=== PATIENT | male | born 1970 | race American Indian/Alaskan Native ===

== ENCOUNTER 2020-10-13 13:23 | Outpatient (CLI) | payer OTHER | END 2020-10-13 23:59 | disposition short-term general hospital (02) | LOC: EMS 13:23 | DX: R51.9 Headache, unspecified (principal); R11.2 Nausea with vomiting, unspecified; R41.0 Disorientation, unspecified; R20.0 Anesthesia of skin | CPT/HCPCS: A0425; A0429 ==

== ENCOUNTER 2021-04-20 05:57 | Outpatient (CLI) | payer OTHER | END 2021-04-20 05:58 | disposition short-term general hospital (02) | LOC: EMS 05:57 | DX: M54.50 Low back pain, unspecified (principal); M79.605 Pain in left leg | CPT/HCPCS: A0425; A0429 ==

== ENCOUNTER 2021-07-27 03:17 | Outpatient (CLI) | payer OTHER | END 2021-07-27 03:18 | disposition critical access hospital (66) | LOC: EMS 03:17 | DX: R56.9 Unspecified convulsions (principal) | CPT/HCPCS: A0425; A0429 ==

== ENCOUNTER 2021-07-27 03:45 | Emergency (ER) | payer OTHER ==
[2021-07-27] MEDS ORDERED: SODIUM CHLORIDE 0.9% 1,000 ML IV STA (04:01)
--- NOTE | 2021-07-27 04:15 | ED Physician Documentation ---
PD HPI SEIZURE - Stated complaint Stated Complaint: SEIZURE/CPR - Chief complaint Chief Complaint: Neuro - History obtained from History obtained from: Patient, EMS - History of Present Illness Timing - onset: Enter time (299), Today Witnessed: Witnessed Number of seizures: Single, Lasted minutes Description of seizure activity: Generalized, Tonic clonic, Postictal Injury during seizure: Bit tongue Associated symptoms: Headache History of seizures: First seizure Contributing factors: Other (headache for the past week). No: Head injury, Substance abuse, EtOH withdrawal, Overdose Similar symptoms before: Has not had sx before Recently seen: Not recently seen - Additional information Additional information: 51-year-old male with a prior history of a CVA and elevated intracranial pressure was in bed with his this evening when he had a tonic-clonic seizure. It lasted maybe 3 minutes. He bit his tongue. He had a long postictal period. He has not had seizure previously but he has been told that he could have seizure from this disorder. He is also been told that the fix for this is a shunt. He has a neurologist at [place] in [place]. At the [facility]. Review of Systems Constitutional: denies: Fever Eyes: denies: Decreased vision Ears: denies: Ear pain Nose: denies: Congestion Throat: denies: Sore throat Cardiac: denies: Chest pain / pressure, Palpitations Respiratory: denies: Dyspnea, Cough GI: denies: Abdominal Pain, Nausea, Vomiting, Constipation, Diarrhea : denies: Dysuria, Frequency Skin: denies: Rash Musculoskeletal: denies: Neck pain, Back pain, Extremity pain Neurologic: reports: Seizure, Headache. denies: Generalized weakness, Focal weakness, Numbness, Head injury, LOC PD PAST MEDICAL HISTORY - Past Medical History Past Medical History: Yes Neuro: CVA, Other Musculoskeletal: Chronic back pain Other Past Medical History: ICP - Present Medications Home Medications: Ambulatory Orders Medication Instructions Recorded Confirmed Gabapentin [Neurontin] 400 mg PO TID 07/27/21 07/27/21 Levetiracetam [Keppra] 500 mg PO BID #40 tablet 07/27/21 Topiramate 50 mg PO BID 07/27/21 acetaZOLAMIDE [Diamox] 500 mg PO BID 07/27/21 07/27/21 tiZANidine [Zanaflex] 4 mg PO TID 07/27/21 07/27/21 - Allergies Allergies/Adverse Reactions: Allergies Allergy/AdvReac Type Severity Reaction Status Date / Time No Known Drug Allergies Allergy Verified 07/27/21 03:55 - Social History Does the pt smoke?: No Smoking Status: Never smoker Does the pt drink ETOH?: Yes Does the pt have substance abuse?: No - Immunizations Immunizations are current?: Yes PD ED PE NORMAL - Vitals Vital signs reviewed: Yes (Tachypneic and hypertensive) - General General: No acute distress, Well developed/nourished, Other (On initial evaluation the patient is post ictal and has some speech latency and delay in execution of motor commands.) - HEENT HEENT: Atraumatic, PERRL, EOMI, Ears normal, Moist mucous membranes, Pharynx benign - Neck Neck: Supple, no meningeal sign, No bony TTP - Cardiac Cardiac: RRR, No murmur - Respiratory Respiratory: No respiratory distress, Clear bilaterally - Abdomen Abdomen: Normal bowel sounds, Soft, Non tender, Non distended, No organomegaly - Back Back: No CVA TTP, No spinal TTP - Derm Derm: Normal color, Warm and dry, No rash - Extremities Extremities: No deformity, No edema - Neuro Neuro: Alert and oriented X 3, learning disabilities specialist 2-12 intact, No motor deficit, No sensory deficit, Normal speech Eye Opening: Spontaneous Motor: Obeys Commands Verbal: Oriented GCS Score: 15 - Psych Psych: Normal mood, Normal affect Results - Vitals Vitals: Vital Signs - 24 hr 07/27/21 07/27/21 07/27/21 03:55 04:30 04:39 Temperature 36.8 C Heart Rate 87 77 Respiratory 25 H 20 Rate Blood Pressure 141/80 H 128/91 H O2 Saturation 98 88 L 99 07/27/21 07/27/21 07/27/21 05:00 05:30 06:00 Temperature Heart Rate 74 77 83 Respiratory 17 22 24 Rate Blood Pressure 130/85 H 134/86 H 144/84 H O2 Saturation 99 99 98 07/27/21 07/27/21 07/27/21 06:30 07:00 07:30 Temperature Heart Rate 88 81 78 Respiratory 17 24 20 Rate Blood Pressure 143/86 H 124/77 128/74 O2 Saturation 98 98 99 Oxygen O2 Source Nasal cannula - EKG (time done) 0400 Rate: Rate (enter#) (86) Rhythm: NSR Ischemia: Normal ST segments Compare to prior EKG: Old EKG unavailable Computer interpretation: Agree with computer - Labs Labs: Laboratory Tests 07/27/21 07/27/21 07/27/21 04:33 04:33 04:39 WBC 9.3 RBC 5.37 Hgb 16.0 Hct 47.3 MCV 88.1 MCH 29.8 MCHC 33.8 RDW 12.8 Plt Count 237 MPV 9.6 Neut # (Auto) 8.0 H Lymph # (Auto) 0.6 L Armstrong # (Auto) 0.3 Eos # (Auto) 0.1 Baso # (Auto) 0.1 Absolute Nucleated RBC 0.00 Nucleated RBC % 0.0 Sodium 139 Potassium 4.3 Chloride 101 Carbon Dioxide 26 Anion Gap 12.0 BUN 20 Creatinine 1.2 Estimated GFR (MDRD) 64 L Glucose 109 H Calcium 9.3 Total Bilirubin 0.9 AST 38 ALT 38 Alkaline Phosphatase 61 Total Protein 8.1 Albumin 4.9 Globulin 3.2 Albumin/Globulin Ratio 1.5 Lipase 42 Urine Color Urine Clarity Urine pH Ur Specific [place] Urine Protein Urine Glucose (UA) Urine Ketones Urine Occult Blood Urine Nitrite Urine Bilirubin Urine Urobilinogen Ur Leukocyte Esterase Urine RBC Urine WBC Ur Squamous Epith Cells Urine Bacteria Urine Casts Ur Microscopic Review Urine Culture Comments Nasal Adenovirus (PCR) NOT DETECTED Nasal B. parapertussis DNA (PCR) NOT DETECTED Nasal Coronavir 229E PCR NOT DETECTED Nasal Coronavir HKU1 PCR NOT DETECTED Nasal Coronavir NL63 PCR NOT DETECTED Nasal Coronavir OC43 PCR NOT DETECTED Nasal Enterovir/Rhinovir PCR NOT DETECTED Nasal Influenza B PCR NOT DETECTED Nasal Influenza A PCR NOT DETECTED Nasal Parainfluen 1 PCR NOT DETECTED Nasal Parainfluen 2 PCR NOT DETECTED Nasal Parainfluen 3 PCR NOT DETECTED Nasal Parainfluen 4 PCR NOT DETECTED Nasal RSV (PCR) NOT DETECTED Nasal B.pertussis DNA PCR NOT DETECTED Nasal C.pneumoniae (PCR) NOT DETECTED Masood Human Metapneumo PCR NOT DETECTED Nasal M.pneumoniae (PCR) NOT DETECTED Nasal SARS-CoV-2 (PCR) NOT DETECTED Urine Opiates Screen Ur Oxycodone Screen Urine Methadone Screen Ur Propoxyphene Screen Ur Barbiturates Screen Ur Tricyclics Screen Ur Phencyclidine Scrn Ur Amphetamine Screen U Methamphetamines Scrn U Benzodiazepines Scrn Urine Cocaine Screen U Cannabinoids Screen Ethyl Alcohol < 5.0 07/27/21 05:36 WBC RBC Hgb Hct MCV MCH MCHC RDW Plt Count MPV Neut # (Auto) Lymph # (Auto) Armstrong # (Auto) Eos # (Auto) Baso # (Auto) Absolute Nucleated RBC Nucleated RBC % Sodium Potassium Chloride Carbon Dioxide Anion Gap BUN Creatinine Estimated GFR (MDRD) Glucose Calcium Total Bilirubin AST ALT Alkaline Phosphatase Total Protein Albumin Globulin Albumin/Globulin Ratio Lipase Urine Color YELLOW Urine Clarity CLEAR Urine pH 5.5 Ur Specific [place] >=1.030 H Urine Protein TRACE Urine Glucose (UA) NEGATIVE Urine Ketones NEGATIVE Urine Occult Blood MODERATE H Urine Nitrite NEGATIVE Urine Bilirubin NEGATIVE Urine Urobilinogen 0.2 (NORMAL) Ur Leukocyte Esterase NEGATIVE Urine RBC 0-5 Urine WBC 0-3 Ur Squamous Epith Cells NONE SEEN Urine Bacteria None Seen Urine Casts 6-10 Hyaline Casts Ur Microscopic Review INDICATED Urine Culture Comments NOT INDICATED Nasal Adenovirus (PCR) Nasal B. parapertussis DNA (PCR) Nasal Coronavir 229E PCR Nasal Coronavir HKU1 PCR Nasal Coronavir NL63 PCR Nasal Coronavir OC43 PCR Nasal Enterovir/Rhinovir PCR Nasal Influenza B PCR Nasal Influenza A PCR Nasal Parainfluen 1 PCR Nasal Parainfluen 2 PCR Nasal Parainfluen 3 PCR Nasal Parainfluen 4 PCR Nasal RSV (PCR) Nasal B.pertussis DNA PCR Nasal C.pneumoniae (PCR) Masood Human Metapneumo PCR Nasal M.pneumoniae (PCR) Nasal SARS-CoV-2 (PCR) Urine Opiates Screen NEGATIVE Ur Oxycodone Screen NEGATIVE Urine Methadone Screen NEGATIVE Ur Propoxyphene Screen NEGATIVE Ur Barbiturates Screen NEGATIVE Ur Tricyclics Screen NEGATIVE Ur Phencyclidine Scrn NEGATIVE Ur Amphetamine Screen NEGATIVE U Methamphetamines Scrn NEGATIVE U Benzodiazepines Scrn NEGATIVE Urine Cocaine Screen NEGATIVE U Cannabinoids Screen NEGATIVE Ethyl Alcohol - Rads (name of study) CT head Radiology: Prelim report reviewed (Impression: 1. No CT evidence of acute intracranial pathology.), EMP read indepedently, See rad report PD MEDICAL DECISION MAKING - ED course Complexity details: reviewed results, re-evaluated patient, considered differential, d/w patient ED course: 51-year-old male with a prior history of elevated intracranial pressure and a CVA previously has seizure today. There are no specific findings on physical exam to indicate a seizure trigger. We were unable to get a hold of the patient's neurologist this morning and have administered Keppra 500 mg intravenously. We will continue to attempt to contact his neurologist this morning. At shift change care is turned over to Dr. Young anticipating further direction from the neurologist. Departure - Departure Clinical Impression: Seizure Condition: Stable Instructions: ED Seizure New Onset Unk Cause Follow-Up: [facility] [Provider Group] Prescriptions: Levetiracetam [Keppra] 500 mg PO BID #40 tablet
[2021-07-27 04:38] LABS: BASOPHILS # (AUTO) 0.1 10^3/uL (0.0-0.1); BASOPHILS % (AUTO) 0.5 %; EOSINOPHILS # (AUTO) 0.1 10^3/uL (0.0-0.7); EOSINOPHILS % (AUTO) 1.3 %; HCT - HEMATOCRIT 47.3 % (42.0-52.0); LYMPHOCYTES # (AUTO) 0.6 10^3/uL (1.5-3.5); LYMPHOCYTES % (AUTO) 6.6 %; MEAN CORPUSCULAR HEMOGLOBIN 29.8 pg (27.0-31.0); MEAN CORPUSCULAR HGB CONC 33.8 g/dL (32.0-36.0); MEAN CORPUSCULAR VOLUME 88.1 fL (80.0-94.0); MEAN PLATELET VOLUME 9.6 fL (7.4-11.4); MONOCYTES # (AUTO) 0.3 10^3/uL (0.0-1.0); NEUTROPHILS % (AUTO) 86.1 %; PLT - PLATELET COUNT 237 10^3/uL (130-450); RED BLOOD COUNT 5.37 10^6/uL (4.70-6.10); RED CELL DISTRIBUTION WIDTH 12.8 % (12.0-15.0); WHITE BLOOD COUNT 9.3 x10^3/uL (4.8-10.8)
[2021-07-27 04:49] LABS: ALBUMIN 4.9 g/dL (3.2-5.5); ALBUMIN/GLOBULIN RATIO 1.5 (1.0-2.2); ALKALINE PHOSPHATASE 61 IU/L (42-121); ALT ALANINE AMINOTRANSFERASE 38 IU/L (10-60); AST ASPARTATE AMINOTRANSFERASE 38 IU/L (10-42); BILIRUBIN,TOTAL 0.9 mg/dL (0.2-1.0); BUN - BLOOD UREA NITROGEN 20 mg/dL (6-20); CALCIUM 9.3 mg/dL (8.5-10.3); CARBON DIOXIDE - CO2 26 mmol/L (21-32); CHLORIDE 101 mmol/L (101-111); CREATININE 1.2 mg/dL (0.6-1.2); ETOH - ETHANOL < 5.0 mg/dL; GFR - MDRD 64 (>89); GLUCOSE 109 mg/dL (70-100); LIPASE 42 U/L (22-51); POTASSIUM 4.3 mmol/L (3.5-5.0); SODIUM 139 mmol/L (135-145); TOTAL PROTEIN 8.1 g/dL (6.7-8.2)
[2021-07-27 05:37] LABS: B. PARAPERTUSSIS- RESP PCR PAN NOT DETECTED; B. PERTUSSIS- RESP PCR PANEL NOT DETECTED; C. PNEUMONIAE- RESP PCR PANEL NOT DETECTED; CORONAVIRUS 229E-RESP PCR NOT DETECTED; CORONAVIRUS HKU1-RESP PCR NOT DETECTED; CORONAVIRUS NL63-RESP PCR NOT DETECTED; CORONAVIRUS OC43-RESP PCR NOT DETECTED; HUMAN METAPNEUMOVIRUS NOT DETECTED; INFLUENZA A- RESP PCR PANEL NOT DETECTED; INFLUENZA B - RESP PCR PANEL NOT DETECTED; M. PNEUMONIAE- RESP PCR PANEL NOT DETECTED; PARAINFLUENZA VIRUS 1 NOT DETECTED; PARAINFLUENZA VIRUS 2 NOT DETECTED; PARAINFLUENZA VIRUS 3 NOT DETECTED; PARAINFLUENZA VIRUS 4 NOT DETECTED; RHINOVIRUS/ENTEROVIRUS NOT DETECTED; RSV- RESP PCR PANEL NOT DETECTED; SARS-CoV-2 -RESP PCR PANEL NOT DETECTED
[2021-07-27 05:38] LABS: MUDS CUTOFF CONCENTRATIONS CUTOFF CONC BELOW:
[2021-07-27 05:40] LABS: BILIRUBIN,URINE NEGATIVE (NEGATIVE); GLUCOSE, URINE (UA) NEGATIVE (NEGATIVE); KETONES,URINE (UA) NEGATIVE (NEGATIVE); LEUKOCYTE ESTERASE, URINE NEGATIVE (NEGATIVE); NITRITE,URINE NEGATIVE (NEGATIVE); OCCULT BLOOD,URINE MODERATE (NEGATIVE); PH,URINE 5.5 PH (5.0-7.5); PROTEIN,URINE TRACE mg/dL (NEGATIVE); UROBILINOGEN,URINE 0.2 (NORMAL) E.U./dL (NORMAL)
[2021-07-27] MEDS ORDERED: levETIRAcetam INJ 500 MG in SODIUM CHLORIDE 0.9% 100ML 100 ML IV STA (05:49)
[2021-07-27 05:50] LABS: CLARITY,URINE CLEAR (CLEAR); RBC,URINE 0-5 /HPF (0-5); WBC,URINE 0-3 /HPF (0-3)
[2021-07-27 05:51] LABS: AMPHETAMINE SCREEN,URINE NEGATIVE (NEGATIVE); BACTERIA,URINE None Seen /HPF (None Seen); BARBITURATE SCREEN,UR NEGATIVE (NEGATIVE); BENZODIAZEPINES SCREEN, URINE NEGATIVE (NEGATIVE); CASTS, URINE 6-10 Hyaline Casts /LPF; COCAINE SCREEN URINE NEGATIVE (NEGATIVE); METHADONE SCREEN, URINE NEGATIVE (NEGATIVE); METHAMPHETAMINES SCREEN, URINE NEGATIVE (NEGATIVE); OPIATE SCREEN, URINE NEGATIVE (NEGATIVE); OXYCODONE SCREEN, URINE NEGATIVE (NEGATIVE); PROPOXYPHENE SCREEN, URINE NEGATIVE (NEGATIVE); SQUAMOUS EPITHELIAL CELL,UR NONE SEEN (<= Few); THC CANNABINOID SCREEN, URINE NEGATIVE (NEGATIVE); TRICYCLIC ANTIDEPRESSANT,URINE NEGATIVE (NEGATIVE)
--- NOTE | 2021-07-27 08:30 | CT Report ---
PROCEDURE: HEAD WO INDICATIONS: new onset seizure TECHNIQUE: Noncontrast 4.5 mm thick angled axial sections acquired from the foramen magnum to the vertex. For r adiation dose reduction, the following was used: automated exposure control, adjustment of mA and/or kV according to patient size. COMPARISON: None. FINDINGS: Image quality: Excellent. CSF spaces: Basal cisterns are patent. No extra-axial fluid collections. Ventricles are normal in size and shape. Brain: No midline shift. No intracranial masses or hemorrhage. Saenz-white matter interface is norm al. Skull and face: Calvarium and visualized facial bones are intact, without suspicious lesions. Sinuses: Visualized sinuses and mastoids are clear. IMPRESSION: 1. No acute intracranial process. 2. Concordant with preliminary report. Reviewed by: Apoorva Kang MD on 07/27/2021 8:29 AM PST Approved by: Apoorva Kang MD on 07/27/2021 8:29 AM PST Station ID: [id number]
[2021-07-27] MEDS ORDERED: HYDROmorphone 0.5 MG/0.5 ML SYRINGE IVP STA (08:45)
[2021-07-27 09:36] VITALS: BP 136/80
[2021-07-27] MEDS ORDERED: KETOROLAC 60 MG/2 ML VIAL IM STA (09:58)
== END 2021-07-27 10:24 | disposition home or self-care (01) ==
LOC: EDUNIT# → EDBD → ED 03:45
DX: R56.9 Unspecified convulsions (principal); R51.9 Headache, unspecified; Z86.73 Personal history of transient ischemic attack (TIA), and cerebral infarction without residual deficits; Z20.822 Contact with and (suspected) exposure to COVID-19
CPT/HCPCS: 0202U; 36415; 70450; 80053; 80306; 80320; 81001; 83690; 85025; 93005; 96365; 96372; 96375; 99284; J1170; 81003; 87086

== ENCOUNTER 2021-07-28 10:17 | Outpatient (CLI) | payer OTHER ==
--- NOTE | 2021-07-28 14:29 | XRAY Report ---
PROCEDURE: Lumbar Spine 2 View INDICATIONS: LUMBAR BACK PAIN TECHNIQUE: 3 views of the lumbar spine were acquired. COMPARISON: None. FINDINGS: Bones: 5 [id number] vertebrae are present. There is normal bony alignment. Loss of height note d in T12 and L1-2 bodies compatible with compression fractures of indeterminate age. T12 compression fracture results in approximately 25% loss of normal vertebral body height. The L1 compression fractu re results in approximately 40% loss of normal vertebral body height. No kyphosis or significant retr opulsed bone fragments associated with either the T12 or L1 compression fractures. Probable chronic L 3 and L4 compression deformities noted. No suspicious bony lesions. Postprocedural changes compatible with L3 and L4 percutaneous vertebral plasties. Postsurgical changes compatible with L3-L5 PSIF. Ort hopedic hardware is in expected position. Orthopedic hardware is intact. Moderate L5-S1 degenerative disc changes. Soft tissues: Overlying bowel gas pattern is normal. No suspicious soft tissue calcifications. IMPRESSION: 1. T12 and L1 compression fractures of indeterminate age. 2. Probable chronic L3 and L4 compression fractures. 3. Postsurgical changes. Reviewed by: Susan Vinson MD, PhD on 07/28/2021 2:28 PM PST Approved by: Susan Vinson MD, PhD on 07/28/2021 2:28 PM PST Station ID: [id number]
== END 2021-07-28 23:59 | disposition home or self-care (01) ==
LOC: DI.S 10:17
PROVIDERS: ATTEND Physician Assistant
DX: M54.50 Low back pain, unspecified (principal); S32.019A Unspecified fracture of first lumbar vertebra, initial encounter for closed fracture; S22.089A Unspecified fracture of T11-T12 vertebra, initial encounter for closed fracture; Z98.1 Arthrodesis status; M51.37 Other intervertebral disc degeneration, lumbosacral region

== ENCOUNTER 2021-09-22 14:55 | Outpatient (CLI) | payer OTHER ==
--- NOTE | 2021-09-22 17:01 | XRAY Report ---
PROCEDURE: Lumbar Spine 2 View INDICATIONS: COMPRESSION FX TECHNIQUE: 3 views of the lumbar spine were acquired. COMPARISON: 3 views of the lumbar spine dated 07/28/2021. FINDINGS: Bones: 5 [id number] vertebrae are present. Postoperative changes redemonstrated within the lumb ar spine. No interval change when compared with the study dated 07/28/2021. Stable compression deformi ties at T12 and L1. No new suspicious bony lesions. Soft tissues: Overlying bowel gas pattern is normal. No suspicious soft tissue calcifications. IMPRESSION: Stable postoperative changes and compression deformities when compared with the study fr om 07/28/2021. Reviewed by: Yaneli Apple MD on 09/22/2021 4:59 PM PDT Approved by: Yaneli Apple MD on 09/22/2021 4:59 PM PDT Station ID: [id number]
== END 2021-09-22 14:56 | disposition home or self-care (01) ==
LOC: DI.S 14:55
PROVIDERS: ATTEND Neurological Surgery
DX: S22.080A Wedge compression fracture of T11-T12 vertebra, initial encounter for closed fracture (principal)

== ENCOUNTER 2021-10-13 18:11 | Outpatient (CLI) | payer OTHER ==
[2021-10-13 20:06] LABS: BASOPHILS % (AUTO) 0.7 %; EOSINOPHILS # (AUTO) 0.2 10^3/uL (0.0-0.7); EOSINOPHILS % (AUTO) 3.5 %; HCT - HEMATOCRIT 44.9 % (42.0-52.0); HGB - HEMOGLOBIN 15.1 g/dL (14.0-18.0); MEAN CORPUSCULAR HGB CONC 33.6 g/dL (32.0-36.0); MEAN CORPUSCULAR VOLUME 89.1 fL (80.0-94.0); MEAN PLATELET VOLUME 10.2 fL (7.4-11.4); MONOCYTES # (AUTO) 0.4 10^3/uL (0.0-1.0); MONOCYTES % (AUTO) 7.1 %; NEUTROPHILS # (AUTO) 3.1 10^3/uL (1.5-6.6); NEUTROPHILS % (AUTO) 54.5 %; PLT - PLATELET COUNT 226 10^3/uL (130-450); RED BLOOD COUNT 5.04 10^6/uL (4.70-6.10); RED CELL DISTRIBUTION WIDTH 12.9 % (12.0-15.0); WHITE BLOOD COUNT 5.7 x10^3/uL (4.8-10.8)
[2021-10-13 20:18] LABS: ALBUMIN 4.6 g/dL (3.2-5.5); ALBUMIN/GLOBULIN RATIO 1.5 (1.0-2.2); BILIRUBIN,TOTAL 0.7 mg/dL (0.2-1.0); CALCIUM 9.3 mg/dL (8.5-10.3); CREATININE 1.2 mg/dL (0.6-1.2); POTASSIUM 3.8 mmol/L (3.5-5.0); TOTAL PROTEIN 7.6 g/dL (6.7-8.2)
== END 2021-10-13 18:12 | disposition home or self-care (01) ==
LOC: LAB.S 18:11
PROVIDERS: ATTEND Physician Assistant
DX: Z51.81 Encounter for therapeutic drug level monitoring (principal); R04.0 Epistaxis
CPT/HCPCS: 36415; 80053; 85025

== ENCOUNTER 2021-12-01 08:08 | Outpatient (CLI) | payer OTHER ==
--- NOTE | 2021-12-01 12:13 | XRAY Report ---
PROCEDURE: Lumbar Spine w/Flex/Ext INDICATIONS: COMPRESSION FRACTURE TECHNIQUE: AP & Lateral views of the lumbar spine were acquired, followed by flexion & extension austin ding views of the lumbar spine. COMPARISON: X-ray lumbar spine, 09/22/2021 and 07/28/2021. FINDINGS: Bones: 5 [id number] vertebrae are present. There is grade 1 retrolisthesis of L3 on L4 and L4 on L5. There are postsurgical changes with posterior fusion at L3-L5. Vertebroplasty at L3 and L4 wi th mild compression deformitie of the superior endplate of L3 and L4. There is also mild compression fracture of T12 and L1, unchanged. No acute vertebral body compression fractures. No suspicious bony lesions. Soft tissues: Overlying bowel gas pattern is normal. No suspicious soft tissue calcifications. Flexion/extension: There is decreased range of motion, with stable alignment. IMPRESSION: 1. Stable mild compression fracture of T12, L1, L3 and L4. There are vertebroplasties at L3-L4. 2. Posterior spinal fusion at L3-L5. 3. Mild retrolisthesis of L4 on L5 and L5 on S1. 4. Decreased range of motion with stable alignment. Reviewed by: Norman Oneill MD on 12/01/2021 12:11 PM PDT Approved by: Norman Oneill MD on 12/01/2021 12:11 PM PDT Station ID: [id number]
== END 2021-12-01 08:09 | disposition home or self-care (01) ==
LOC: DI.S 08:08
PROVIDERS: ATTEND Nurse Practitioner Family
DX: S22.080A Wedge compression fracture of T11-T12 vertebra, initial encounter for closed fracture (principal); M43.16 Spondylolisthesis, lumbar region; M43.17 Spondylolisthesis, lumbosacral region; Z98.1 Arthrodesis status

== ENCOUNTER 2022-03-17 04:22 | Outpatient (CLI) | payer BC | END 2022-03-17 04:23 | disposition critical access hospital (66) | LOC: EMS 04:22 | DX: R56.9 Unspecified convulsions (principal); R41.0 Disorientation, unspecified | CPT/HCPCS: A0425; A0429 ==

== ENCOUNTER 2022-03-17 04:56 | Emergency (ER) | payer BC, OTHER ==
--- NOTE | 2022-03-17 05:06 | ED Physician Documentation ---
History of Present Illness - Stated complaint Stated Complaint: UNRESPONSIVE - History obtained from History obtained from: Patient, EMS - Additonal information Additional information: 51-year-old man with history of intracranial hypertension status poststroke, seizure disorder secondary to this, who presents with unresponsive episode witnessed by in bed this morning. On EMS arrival patient appeared postictal and had normal fingerstick, began to come to on the ambulance ride over and is now alert and oriented. patient bit his L side of tongue. Patient denies fever, n/v. felt normal yesterday. Patient's MD is Dr. Spencer at [facility]. Review of Systems Ten Systems: 10 systems reviewed and negative Constitutional: denies: Fever, Chills Neurologic: reports: Seizure, Confused, Headache. denies: Focal weakness, Numbness PD PAST MEDICAL HISTORY - Past Medical History Cardiovascular: Hypertension Neuro: CVA, Other Musculoskeletal: Chronic back pain - Past Surgical History Past Surgical History: Yes Ortho: Spine surgery - Present Medications Home Medications: Ambulatory Orders Medication Instructions Recorded Confirmed acetaZOLAMIDE [Diamox] 2 tab PO BID 07/27/21 03/17/22 - Allergies Allergies/Adverse Reactions: Allergies Allergy/AdvReac Type Severity Reaction Status Date / Time No Known Drug Allergies Allergy Verified 03/17/22 05:12 - Social History Does the pt smoke?: No Smoking Status: Never smoker Does the pt drink ETOH?: Yes Does the pt have substance abuse?: No - Immunizations Immunizations are current?: Yes PD ED PE NORMAL - Vitals Vital signs reviewed: Yes - General General: Alert and oriented X 3, No acute distress, Well developed/nourished - HEENT HEENT: Atraumatic, PERRL, EOMI, Moist mucous membranes, Pharynx benign - Neck Neck: Supple, no meningeal sign - Cardiac Cardiac: RRR - Respiratory Respiratory: No respiratory distress, Clear bilaterally - Abdomen Abdomen: Non tender, Non distended - Derm Derm: Normal color, Warm and dry - Extremities Extremities: No deformity - Neuro Neuro: Alert and oriented X 3, 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, No motor deficit, No sensory deficit, Normal speech - Psych Psych: Normal mood, Normal affect Results - Vitals Vitals: Vital Signs - 24 hr 03/17/22 03/17/22 03/17/22 05:06 05:45 06:00 Temperature 36.1 C L Heart Rate 75 72 66 Respiratory 17 20 20 Rate Blood Pressure 135/85 H 105/60 106/65 O2 Saturation 95 100 100 03/17/22 03/17/22 03/17/22 06:30 07:00 07:30 Temperature Heart Rate 67 68 66 Respiratory 18 24 17 Rate Blood Pressure 124/79 131/80 H 120/82 H O2 Saturation 100 96 100 03/17/22 08:00 Temperature Heart Rate 63 Respiratory 22 Rate Blood Pressure 130/76 O2 Saturation 100 Oxygen O2 Source Room air - Labs Labs: Laboratory Tests 03/17/22 03/17/22 05:35 05:35 WBC 8.4 RBC 5.18 Hgb 15.7 Hct 47.9 MCV 92.5 MCH 30.3 MCHC 32.8 RDW 12.7 Plt Count 209 MPV 10.0 Neut # (Auto) 7.4 H Lymph # (Auto) 0.5 L Carbon # (Auto) 0.4 Eos # (Auto) 0.1 Baso # (Auto) 0.0 Absolute Nucleated RBC 0.00 Nucleated RBC % 0.0 Sodium 139 Potassium 4.0 Chloride 110 Carbon Dioxide 20 L Anion Gap 9.0 BUN 27 H Creatinine 1.4 H Estimated GFR (MDRD) 53 L Glucose 108 H Calcium 8.9 Total Bilirubin 0.8 AST 28 ALT 21 Alkaline Phosphatase 52 Total Protein 7.3 Albumin 4.5 Globulin 2.8 Albumin/Globulin Ratio 1.6 Lipase 83 H PD MEDICAL DECISION MAKING - ED course ED course: 51-year-old man with history of intracranial hypertension, stroke, and seizure disorder presents status postseizure. We will obtain CT, labs to evaluate further and monitor the patient however he appears to have returned to baseline at this time. d/w Dr. Spencer - recommending patient take ACTZ 500 bid. d/w patient. Dr. Spencer's office will reach out for follow up appointment. Return precautions given. Departure - Departure Disposition: 01 Home, Self Care Clinical Impression: Seizure, Pseudotumor cerebri Condition: Good Instructions: First Aid Seizures, ED Seizure Recurrent Comments: You are seen in the emergency department for seizure. Your CT of the head and your lab work showed no emergent findings. Please follow-up with Dr. Spencer, your neurologist. Take acetazolamide 500 mg twice daily (2 pills of 250 mg twice daily. Return to the emergency department if you have any new or worsening symptoms or other concerns.
[2022-03-17 05:41] LABS: BASOPHILS % (AUTO) 0.2 %; EOSINOPHILS # (AUTO) 0.1 10^3/uL (0.0-0.7); EOSINOPHILS % (AUTO) 0.6 %; HCT - HEMATOCRIT 47.9 % (42.0-52.0); HGB - HEMOGLOBIN 15.7 g/dL (14.0-18.0); LYMPHOCYTES # (AUTO) 0.5 10^3/uL (1.5-3.5); LYMPHOCYTES % (AUTO) 5.7 %; MEAN CORPUSCULAR HEMOGLOBIN 30.3 pg (27.0-31.0); MEAN CORPUSCULAR HGB CONC 32.8 g/dL (32.0-36.0); MEAN CORPUSCULAR VOLUME 92.5 fL (80.0-94.0); MONOCYTES # (AUTO) 0.4 10^3/uL (0.0-1.0); MONOCYTES % (AUTO) 4.7 %; NEUTROPHILS # (AUTO) 7.4 10^3/uL (1.5-6.6); NEUTROPHILS % (AUTO) 87.5 %; PLT - PLATELET COUNT 209 10^3/uL (130-450); RED BLOOD COUNT 5.18 10^6/uL (4.70-6.10); RED CELL DISTRIBUTION WIDTH 12.7 % (12.0-15.0); WHITE BLOOD COUNT 8.4 x10^3/uL (4.8-10.8)
[2022-03-17 05:54] LABS: ALBUMIN 4.5 g/dL (3.2-5.5); ALBUMIN/GLOBULIN RATIO 1.6 (1.0-2.2); BILIRUBIN,TOTAL 0.8 mg/dL (0.2-1.0); CALCIUM 8.9 mg/dL (8.5-10.3); CREATININE 1.4 mg/dL (0.6-1.2); TOTAL PROTEIN 7.3 g/dL (6.7-8.2)
--- NOTE | 2022-03-17 07:50 | CT Report ---
PROCEDURE: HEAD WO INDICATIONS: seizure, history intracranial hypertension TECHNIQUE: Noncontrast 4.5 mm thick angled axial sections acquired from the foramen magnum to the vertex. For r adiation dose reduction, the following was used: automated exposure control, adjustment of mA and/or kV according to patient size. COMPARISON: CT head 07/27/2021 FINDINGS: Image quality: Excellent. CSF spaces: Basal cisterns are patent. No extra-axial fluid collections. Ventricles are normal in size and shape. Brain: No midline shift. No intracranial masses or hemorrhage. Saenz-white matter interface is norm al. Skull and face: Calvarium and visualized facial bones are intact, without suspicious lesions. Sinuses: Visualized sinuses and mastoids are clear. IMPRESSION: 1. No acute intracranial process. Reviewed by: Zaida Rivas MD on 03/17/2022 7:48 AM PDT Approved by: Zaida Rivas MD on 03/17/2022 7:48 AM PDT Station ID: [id number]
[2022-03-17 08:56] VITALS: BP 126/84
== END 2022-03-17 09:00 | disposition home or self-care (01) ==
LOC: EDUNIT# → EDBD → ED 04:56
DX: G93.2 Benign intracranial hypertension (principal); I10 Essential (primary) hypertension
CPT/HCPCS: 36415; 80053; 83690; 85025; 99282; 99284

== ENCOUNTER 2024-03-04 04:16 | Emergency (ER) | payer BC, OTHER ==
--- NOTE | 2024-03-04 04:42 | ED Physician Documentation ---
PD HPI ABD PAIN - Stated complaint Stated Complaint: CP, V BLOOD - Chief complaint Chief Complaint: Cardiac - History obtained from History obtained from: Patient - Additional information Additional information: 53-year-old male with history of intracranial hypertension, seizures on Diamox and Keppra presents by private vehicle for approximately 3 months of nosebleeds, blood in vomit, and early satiety. Patient states that he was told by his neurosurgeon Dr. Spencer at [facility] that nosebleeds can occur as a side effect of taking Diamox, and he attributed his nosebleeds to his medication use. He states that for the last 2 to 3 days his nosebleeds and vomiting have gotten worse, last night he vomited 3 times, each time with blood in his emesis. He states his last nosebleed was 4 days ago. Since his symptoms are worsening he decided to come in for evaluation. Also reporting a mild burning pain in his lower chest after his last episode of emesis Patient denies alcohol use, regular NSAID use. Review of Systems Constitutional: denies: Fever, Chills Nose: reports: Epistaxis. denies: Rhinorrhea / runny nose, Foreign Body Throat: denies: Dental pain / toothache, Oral lesions / sores, Sore throat Cardiac: reports: Chest pain / pressure. denies: Palpitations, Calf pain GI: reports: Nausea, Vomiting, Hematemesis. denies: Abdominal Pain, Constipation, Diarrhea Skin: denies: Rash, Lesions, Abrasion (s), Laceration (s) Musculoskeletal: denies: Neck pain, Back pain, Extremity pain Neurologic: denies: Generalized weakness, Focal weakness, Numbness, Difficulty speaking PD PAST MEDICAL HISTORY - Past Medical History Cardiovascular: Hypertension Neuro: CVA, Other Musculoskeletal: Chronic back pain - Past Surgical History Past Surgical History: Yes Ortho: Spine surgery - Present Medications Home Medications: Ambulatory Orders Medication Instructions Recorded Confirmed acetaZOLAMIDE [Diamox] 2 tab PO BID 07/27/21 03/17/22 - Allergies Allergies/Adverse Reactions: Allergies Allergy/AdvReac Type Severity Reaction Status Date / Time No Known Drug Allergies Allergy Verified 03/04/24 04:28 - Social History Does the pt smoke?: No Smoking Status: Never smoker Does the pt drink ETOH?: Yes Does the pt have substance abuse?: No - Immunizations Immunizations are current?: Yes - POLST Patient has POLST: No PD ED PE NORMAL - Vitals Vital signs reviewed: Yes - General General: Alert and oriented X 3, No acute distress, Well developed/nourished - HEENT HEENT: Atraumatic, PERRL, EOMI, Moist mucous membranes, Pharynx benign, Other (R nare erythematous, no active or dried blood. 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, No motor deficit, Normal speech - Psych Psych: Normal mood, Normal affect Results - Vitals Vitals: Vital Signs - 24 hr 03/04/24 03/04/24 04:29 06:35 Temperature 36.3 C L Heart Rate 68 81 Respiratory 19 16 Rate Blood Pressure 138/97 H 139/83 H O2 Saturation 100 98 Oxygen O2 Source Room air - Labs Labs: Laboratory Tests 03/04/24 03/04/24 03/04/24 04:34 04:34 04:34 WBC 11.6 H RBC 5.26 Hgb 15.7 Hct 48.9 MCV 93.0 MCH 29.8 MCHC 32.1 RDW 12.8 Plt Count 228 MPV 10.3 Neut # (Auto) 9.7 H Lymph # (Auto) 0.8 L [place] # (Auto) 0.8 Eos # (Auto) 0.3 Baso # (Auto) 0.1 Absolute Nucleated RBC 0.00 Nucleated RBC % 0.0 PT 12.2 INR 1.1 Sodium 139 Potassium 3.3 L Chloride 108 Carbon Dioxide 22 Anion Gap 9.0 BUN 27 H Creatinine 1.4 H Estimated GFR (MDRD) 53 L Glucose 109 H Calcium 9.7 Total Bilirubin 0.8 AST 13 ALT 12 Alkaline Phosphatase 49 Total Protein 7.6 Albumin 4.7 Globulin 2.9 Albumin/Globulin Ratio 1.6 Lipase 27 PD Medical Decision Making - ED course Complexity details: reviewed old records, reviewed results, re-evaluated patient, considered differential, d/w patient ED course: Several months of nosebleed and blood in vomit. Patient states that his last nosebleed was several days ago, but his vomiting with blood was worse last night. While it is likely that the patient's hematemesis is secondary to recurrent nosebleeds his early satiety is somewhat concerning. Laboratory work, CT imaging to be ordered. Laboratory work is reviewed. Patient's hemoglobin is 15, unlikely that he is experiencing a GI bleed at this time. CT scan of the abdomen pelvis shows a paraesophageal lymph node. In addition laboratory work also shows creatinine of 1.4, uncertain chronicity. Last laboratory work on file is from 2021. Patient informed of all lab and imaging findings, he was advised of his normal hemoglobin and elevated creatinine. If patient's nosebleeds are indeed attributed to his Diamox he was advised to follow-up with his neurosurgeon to talk about potentially trialing a different medication for his intracranial hypertension. He was also informed of his elevated kidney function as well as the lymph node near his esophagus. Patient was strongly advised to have a primary care doctor follow-up appointment in order to monitor these findings and help to arrange follow-up appointments with specialist. Departure - Departure Disposition: Home, Self Care Clinical Impression: Hematemesis Condition: Stable Instructions: ED Nosebleed Comments: Your blood work and imaging today were overall reassuring. It is very common that swallowed blood from nosebleeds can irritate the stomach and cause vomiting. Your hemoglobin today is 15, which is completely normal. Any blood that you are losing your body is making back up. I did want to bring attention to 2 separate findings. Your kidney function toda y is slightly elevated. I do not have any lab values to compare to except from 2 years ago. I do not know how recent this kidney function is. Make sure that you stay hydrated and drink plenty of fluids. Follow-up with a primary care doctor about this finding. Your abdominal CT scan did not show any masses or blockages. You did have some thickening of your esophagus with a lymph node next to it. This could be from the vomiting you are experiencing, but should be closely monitored to rule out a cancerous process. Again, I recommend following up with a primary care doctor for continued monitoring of this finding. You may also follow-up with a GI doctor for additional assessments. If you notice shortness of breath, worsening bleeding, severe fatigue, chest pain with exertion, or any other concerning findings please come back to the emergency department for repeat evaluation. Forms: PCP List Discharge Date/Time: 03/04/24 06:54
[2024-03-04 04:47] LABS: BASOPHILS # (AUTO) 0.1 10^3/uL (0.0-0.1); BASOPHILS % (AUTO) 0.4 %; EOSINOPHILS # (AUTO) 0.3 10^3/uL (0.0-0.7); EOSINOPHILS % (AUTO) 2.2 %; HCT - HEMATOCRIT 48.9 % (42.0-52.0); HGB - HEMOGLOBIN 15.7 g/dL (14.0-18.0); LYMPHOCYTES # (AUTO) 0.8 10^3/uL (1.5-3.5); LYMPHOCYTES % (AUTO) 7.2 %; MEAN CORPUSCULAR HEMOGLOBIN 29.8 pg (27.0-31.0); MEAN CORPUSCULAR HGB CONC 32.1 g/dL (32.0-36.0); MEAN PLATELET VOLUME 10.3 fL (7.4-11.4); MONOCYTES # (AUTO) 0.8 10^3/uL (0.0-1.0); MONOCYTES % (AUTO) 6.6 %; NEUTROPHILS # (AUTO) 9.7 10^3/uL (1.5-6.6); NEUTROPHILS % (AUTO) 83.3 %; PLT - PLATELET COUNT 228 10^3/uL (130-450); RED BLOOD COUNT 5.26 10^6/uL (4.70-6.10); RED CELL DISTRIBUTION WIDTH 12.8 % (12.0-15.0); WHITE BLOOD COUNT 11.6 x10^3/uL (4.8-10.8)
[2024-03-04] MEDS: ONDANSETRON 4 MG/2 ML VIAL IVP STA (04:59)
[2024-03-04 05:00] LABS: INR 1.1 (0.8-1.2); PT - PROTHROMBIN TIME 12.2 secs (9.9-12.6)
[2024-03-04 05:08] LABS: ALBUMIN 4.7 g/dL (3.2-5.5); ALBUMIN/GLOBULIN RATIO 1.6 (1.0-2.2); BILIRUBIN,TOTAL 0.8 mg/dL (0.2-1.0); CALCIUM 9.7 mg/dL (8.5-10.3); CREATININE 1.4 mg/dL (0.6-1.3); POTASSIUM 3.3 mmol/L (3.5-4.5); TOTAL PROTEIN 7.6 g/dL (6.4-8.9)
[2024-03-04] MEDS ORDERED: iohexoL-300 100 ML VIAL ONE (05:26)
[2024-03-04] MEDS: iohexoL-300 100 ML VIAL IVP ONE (05:59)
[2024-03-04] MEDS: SODIUM CHLORIDE 0.9% 1,000 ML IV STA (05:59)
[2024-03-04 07:01] VITALS: BP 139/83; O2SAT 98
--- NOTE | 2024-03-04 10:06 | XRAY Report ---
PROCEDURE: Chest 1V INDICATIONS: chest pain TECHNIQUE: One view of the chest was acquired. COMPARISON: None. FINDINGS: Surgical changes and devices: None. Lungs and pleura: No pleural effusions or pneumothorax. Lungs are clear. Mediastinum: Mediastinal contours appear normal. Heart size is normal. Bones and chest wall: No suspicious bony lesions. Overlying soft tissues appear unremarkable. IMPRESSION: No acute cardiopulmonary process. Findings are concordant with preliminary interpretation provided by [facility]. Reviewed by: Lucho Deshpande MD on 03/04/2024 9:05 AM MARKOS Approved by: Lucho Deshpande MD on 03/04/2024 9:05 AM MAKROS Station ID: [id number]
--- NOTE | 2024-03-04 10:14 | CT Report ---
PROCEDURE: Abdomen/Pelvis W INDICATIONS: early satiety, blood in vomit x 3 months CONTRAST: 100 ML OMNI 300 TECHNIQUE: After the administration of intravenous contrast, a CT scan of the abdomen and pelvis was performed. Images were recorded and evaluated at appropriate window settings. Reformats: coronal and sagittal. F or radiation dose reduction, the following was used: automated exposure control, adjustment of mA and /or kV according to patient size. COMPARISON: None. FINDINGS: Image quality: Diagnostic. Lower chest: There is moderate thickening of the distal esophagus towards the gastric esophageal junc tion. No discrete mass identified by CT. There is a small paraesophageal lymph node near the GE junct ion. Liver: No solid mass. Gallbladder: No radiopaque stones or wall thickening. Biliary tree: No intrahepatic or extrahepatic dilation, accounting for age. Spleen: No splenomegaly. Pancreas: No pancreatic ductal dilation. Adrenals: No adrenal nodule. Kidneys and ureters: No hydronephrosis. No renal cystic lesion which requires follow up. No solid mas s. Stomach, bowel and peritoneum: No gastric or small bowel dilation. No abnormal wall thickening. No pa thologic free fluid. Lymph nodes: No central or retroperitoneal adenopathy. Vessels: No infrarenal aortic aneurysm. Patent portal vein. PELVIS Reproductive organs: Unremarkable. Bladder: No abnormal wall thickening, accounting for underdistention. Pelvic lymph nodes: No pelvic adenopathy by size criteria. Bones: Posterior fixation of C3-C5 L3-L5. Wedge deformity of L1. Other: No significant ventral or inguinal hernia. IMPRESSION: Thickening of the esophagus is nonspecific and may represent esophagitis with neoplasm not excluded b y CT Findings are concordant with preliminary interpretation provided by [facility]. Reviewed by: Lucho Deshpande MD on 03/04/2024 9:12 AM MARKOS Approved by: Lucho Deshpande MD on 03/04/2024 9:12 AM MARKOS Station ID: [id number]
== END 2024-03-04 06:54 | disposition home or self-care (01) ==
LOC: ED 04:16
DX: K92.0 Hematemesis (principal); I10 Essential (primary) hypertension; R04.0 Epistaxis
CPT/HCPCS: 36415; 71045; 74177; 80053; 83690; 85025; 85610; 93005; 96374; 99283; 99284; Q9967